=== PATIENT | female | born 1960 | race Caucasian/White ===

== ENCOUNTER → 2021-03-07 | Outpatient (CLI) | payer OTHER | LOC: KOH-I 10:51 | DX: M54.2 Cervicalgia (principal); M47.812 Spondylosis without myelopathy or radiculopathy, cervical region | CPT/HCPCS: 72040 ==

== ENCOUNTER → 2021-03-29 | Outpatient (CLI) | payer OTHER, SELFPAY | LOC: KOH-I 03-28 14:30 | DX: R09.89 Other specified symptoms and signs involving the circulatory and respiratory systems (principal); R51.9 Headache, unspecified; R90.82 White matter disease, unspecified; G31.9 Degenerative disease of nervous system, unspecified; I65.23 Occlusion and stenosis of bilateral carotid arteries | CPT/HCPCS: 70551; 93880 ==

== ENCOUNTER → 2021-04-07 | Outpatient (CLI) | payer OTHER | LOC: KOH-I 09:58 | DX: Z87.891 Personal history of nicotine dependence (principal); R91.8 Other nonspecific abnormal finding of lung field | CPT/HCPCS: 71271 ==

== ENCOUNTER → 2021-11-07 | Outpatient (CLI) | payer OTHER | LOC: KOH-I 09:57 | DX: M79.674 Pain in right toe(s) (principal); S92.911D Unspecified fracture of right toe(s), subsequent encounter for fracture with routine healing | CPT/HCPCS: 73630 ==

== ENCOUNTER → 2021-12-22 | Outpatient (CLI) | payer OTHER | LOC: MRI 13:32 | DX: H53.9 Unspecified visual disturbance (principal) | CPT/HCPCS: 70553; A9577 ==